=== PATIENT | male | born 1955 | race Hispanic/Latino ===

== ENCOUNTER 2020-08-24 11:12 | Day surgery (SDC) | payer MEDICARE ==
[2020-08-23 09:07] VITALS: BMI 37.9
[2020-08-24] MEDS ORDERED: Bupivacaine 0.25% HCL 30 ML VIAL ONE (11:36)
[2020-08-24] MEDS ORDERED: XYLOCAINE 2%-EPI 1:100,000 20 ML VIAL ONE (11:36)
[2020-08-24] MEDS ORDERED: Fentanyl 100 MCG/2 ML VIAL ONE ×2 (11:45→13:43)
[2020-08-24] MEDS ORDERED: Rocuronium Bromide 10 MG/ML (10ML VIAL) ONE (12:10)
[2020-08-24] MEDS ORDERED: Dexamethasone 20 MG/5 ML VIAL ONE (12:10)
[2020-08-24] MEDS ORDERED: PROPOFOL 200 MG/20 ML VIAL ONE (12:10)
[2020-08-24] MEDS ORDERED: Glycopyrrolate 0.2 MG/ML 5 ML SYRINGE ONE (12:10)
[2020-08-24] MEDS ORDERED: Lidocaine 1% PF 5 ML VIAL ONE (12:10)
[2020-08-24] MEDS ORDERED: HYDROcodone/Acetaminophen 5/325 mg Tablet ONE (14:35)
== END 2020-08-24 16:13 | disposition home or self-care (01) ==
LOC: SDC 11:12
PROVIDERS: ATTEND Surgery
PROC: 0WUF4JZ Supplement Abdominal Wall with Synthetic Substitute, Percutaneous Endoscopic Approach (ICD-10-PCS; principal; 2020-08-24)
DX: K43.2 Incisional hernia without obstruction or gangrene (principal); I10 Essential (primary) hypertension; E78.5 Hyperlipidemia, unspecified; M17.0 Bilateral primary osteoarthritis of knee; M19.042 Primary osteoarthritis, left hand; M19.041 Primary osteoarthritis, right hand; M19.022 Primary osteoarthritis, left elbow; Z79.899 Other long term (current) drug therapy
CPT/HCPCS: 49654; C1781; J0690; J1100; J2704; J3010; S0020

== ENCOUNTER 2020-11-28 08:08 | Outpatient (CLI) | payer MEDICARE | END 2020-11-28 08:09 | disposition home or self-care (01) | LOC: SCSLAB 08:08 | PROVIDERS: ATTEND Family Medicine | DX: M25.562 Pain in left knee (principal) | CPT/HCPCS: 36415; 84550 ==